=== PATIENT | female | born 1960 | race African-American/Black ===

== ENCOUNTER 2016-08-03 06:17 | Day surgery (SDC) | payer BC ==
[~2016-08-03] VITALS: Ht 167.6 cm; Wt 97.5 kg
[~2016-08-03 06:17] MED LIST: AMLO5TAB4 PO; BIOT1TAB7 PO; FISH; NEXIUM PO; SIMV10TA2 PO; WARF5TAB76 PO; [UNRECOGNIZED DRUG - REMARK] PO
[2016-08-03] MEDS ORDERED: LACTATED RINGERS 1,000 ML IV SCH (07:45)
[2016-08-03 08:09] LABS: INR 1.1; PARTIAL THROMBOPLASTIN TIME 40.4 sec (24.0-34.0); PROTHROMBIN TIME 11.3 sec
[2016-08-03] MEDS ORDERED: HYDR12.529 PO (08:32)
[2016-08-03] MEDS ORDERED: OMEP20CA10 PO (08:32)
[2016-08-03] MEDS ORDERED: SKIN ADHESIVE 0.7 GM EA TOP ONE (09:04)
[2016-08-03] MEDS ORDERED: LIDOCAINE HCL 1% 20ML VIAL (Pyxis) INJ ONE (09:04)
[2016-08-03] MEDS ORDERED: LIDOCAINE HCL/EPINEPHRINE 0.5%-EPI 1:200,000 50 ML VIAL INFIL ONE (09:05)
[2016-08-03] MEDS ORDERED: BUPIVACAINE HCL 0.5% (5MG/ML) 50ML ONE (09:05)
[2016-08-03] MEDS ORDERED: LEVOFLOXACIN 500MG PREMIX 100 ML IV ONE (09:56)
[2016-08-03] MEDS ORDERED: LABETALOL HCL 20MG/4ML CARPUJECT IV PRN (10:00)
[2016-08-03] MEDS ORDERED: MEPERIDINE HCL/PF 25MG/ML CPJ IV PRN (10:00)
[2016-08-03] MEDS ORDERED: ONDANSETRON HCL 4MG/2ML VIAL IV PRN (10:00)
[2016-08-03] MEDS ORDERED: HYDROMORPHONE HCL/PF 2MG/ML CPJ IV PRN (10:00)
[2016-08-03 11:14] VITALS: BP 120/79
[2016-08-03] MEDS ORDERED: HYDROCODONE/ACETAMINOPHEN 5/325MG TABLET PO PRN (11:15)
== END 2016-08-03 12:00 | disposition home or self-care (01) ==
LOC: OR 06:17
PROVIDERS: ATTEND Surgery
DX: D36.7 Benign neoplasm of other specified sites (principal); I10 Essential (primary) hypertension; E78.00 Pure hypercholesterolemia, unspecified; K21.9 Gastro-esophageal reflux disease without esophagitis; M19.90 Unspecified osteoarthritis, unspecified site
CPT/HCPCS: 27337; 36415; 85610; 85730; 88304; C1893; G0168; J1956; J3490; J7120

== ENCOUNTER 2016-11-05 08:21 | Emergency (ER) | payer BC ==
[~2016-11-05] VITALS: Ht 167.6 cm; Wt 95.0 kg
[~2016-11-05 08:21] MED LIST changes: +HYDR12.529 PO; +OMEP20CA10 PO
[2016-11-05] MEDS ORDERED: IBUPROFEN 800MG TABLET PO ONE (09:15)
[2016-11-05 09:27] VITALS: BP 143/86
== END 2016-11-05 09:55 | disposition home or self-care (01) ==
LOC: ER 08:21
DX: J02.9 Acute pharyngitis, unspecified (principal); I10 Essential (primary) hypertension; E78.00 Pure hypercholesterolemia, unspecified; Z86.73 Personal history of transient ischemic attack (TIA), and cerebral infarction without residual deficits; F17.200 Nicotine dependence, unspecified, uncomplicated; Z79.01 Long term (current) use of anticoagulants; Z88.0 Allergy status to penicillin; Z90.710 Acquired absence of both cervix and uterus; Z87.440 Personal history of urinary (tract) infections
CPT/HCPCS: 99283

== ENCOUNTER → 2016-12-02 | Outpatient (CLI) | payer BC ==
[2016-12-02 13:08] LABS: CLARITY URINE CLEAR (CLEAR); COLOR URINE YELLOW (YELLOW); GLUCOSE URINE NEGATIVE (NEGATIVE); KETONES URINE NEGATIVE (NEGATIVE); LEUKOCYTE ESTERASE URINE NEGATIVE (NEGATIVE); NITRITE URINE NEGATIVE (NEGATIVE); OCCULT BLOOD URINE TRACE (NEGATIVE); PH URINE 7.5 (4.5-8.0); PROTEIN URINE NEGATIVE (NEGATIVE); SPECIFIC GRAVITY URINE 1.016 (1.005-1.030)
[2016-12-02 13:09] LABS: BACTERIA URINE NONE SEEN; CALCIUM PHOSPHATE CRYSTALS UR NONE SEEN /lpf; SQUAMOUS EPITHELIAL CELL URINE 1+ /lpf (RARE/1+); WAXY CASTS URINE NONE SEEN /lpf; WBC URINE NONE SEEN /hpf (0-2); YEAST URINE NONE SEEN
[2016-12-02 13:14] LABS: BASOPHILS % 0.6 % (0.0-2.0); HEMATOCRIT. 38.7 % (36.0-48.0); LYMPHOCYTES % 53.3 % (20.0-50.0); MEAN CORPUSCULAR HEMOGLOBIN 29.9 pg (28.0-32.0); MEAN CORPUSCULAR HGB CONC 33.6 g/dL (31.0-37.0); MEAN CORPUSCULAR VOLUME 88.8 fL (81.0-99.0); MONOCYTES % 9.1 % (2.0-8.0); PLATELET 375 x1000/uL (130-400); RED BLOOD CELL COUNT 4.36 mill/uL (4.2-5.4); RED CELL DISTRIBUTION WIDTH 14.1 % (11.6-14.6); WHITE BLOOD COUNT 5.5 x1000/uL (4.5-11.0)
[2016-12-02 13:27] LABS: CHLORIDE 109 mEq/L (98-107); INDEX HEMOLYSI 1 (1-3); INDEX ICTERIC 1 (1-4); INDEX LIPEMIC 1 (1-3)
[2016-12-02 13:37] LABS: ALANINE AMINOTRANSFERASE 29 IU/L (13-61); ALBUMIN 3.4 g/dL (3.4-5.0); ANION GAP 9; CALCIUM 8.4 mg/dL (8.5-10.1); CARBON DIOXIDE 27 mEq/L (21-32); UREA NITROGEN BLOOD 11 mg/dL (7-21); eGFR > 60 mL/min (>60)
[2016-12-02 13:41] LABS: INR 1.2; PARTIAL THROMBOPLASTIN TIME 39.6 sec (24.0-34.0); PROTHROMBIN TIME 12.1 sec
== END | disposition home or self-care (01) ==
LOC: LAB 12:48
PROVIDERS: ATTEND Internal Medicine
DX: Z01.818 Encounter for other preprocedural examination (principal); Z13.0 Encounter for screening for diseases of the blood and blood-forming organs and certain disorders involving the immune mechanism; Z13.220 Encounter for screening for lipoid disorders
CPT/HCPCS: 36415; 80053; 81001; 85025; 85610; 85730

== ENCOUNTER → 2017-02-03 | Outpatient (CLI) | payer BC ==
[2017-02-03 10:51] LABS: INR 1.6; PARTIAL THROMBOPLASTIN TIME 49.3 sec (24.0-34.0); PROTHROMBIN TIME 16.7 sec
== END | disposition home or self-care (01) ==
LOC: LAB 10:08
PROVIDERS: ATTEND Internal Medicine
DX: I63.9 Cerebral infarction, unspecified (principal)
CPT/HCPCS: 36415; 85610; 85730

== ENCOUNTER → 2017-02-17 | Outpatient (CLI) | payer BC | END | disposition home or self-care (01) | LOC: MRI 14:43 | PROVIDERS: ATTEND Psychiatry & Neurology Neurology | DX: I63.312 Cerebral infarction due to thrombosis of left middle cerebral artery (principal); R90.82 White matter disease, unspecified | CPT/HCPCS: 70544; 70553 ==

== ENCOUNTER → 2017-04-14 | Outpatient (CLI) | payer BC ==
[2017-04-14 11:22] LABS: INR 1.9; PARTIAL THROMBOPLASTIN TIME 47.7 sec (23.4-31.0); PROTHROMBIN TIME 19.4 sec (9.4-11.6)
== END | disposition home or self-care (01) ==
LOC: LAB 10:50
PROVIDERS: ATTEND Internal Medicine
DX: I63.9 Cerebral infarction, unspecified (principal)
CPT/HCPCS: 36415; 85610; 85730

== ENCOUNTER → 2017-06-23 | Outpatient (CLI) | payer BC ==
[2017-06-23 10:47] LABS: INR 1.2; PARTIAL THROMBOPLASTIN TIME 41.5 sec (23.4-31.0); PROTHROMBIN TIME 12.8 sec (9.4-11.6)
== END | disposition home or self-care (01) ==
LOC: LAB 10:14
PROVIDERS: ATTEND Internal Medicine
DX: I63.9 Cerebral infarction, unspecified (principal)
CPT/HCPCS: 36415; 85610; 85730

== ENCOUNTER → 2017-07-05 | Outpatient (CLI) | payer BC | END | disposition home or self-care (01) | LOC: MAMMO 11:59 | PROVIDERS: ATTEND Internal Medicine | DX: Z12.31 Encounter for screening mammogram for malignant neoplasm of breast (principal) | CPT/HCPCS: G0202 ==

== ENCOUNTER → 2017-07-14 | Outpatient (CLI) | payer BC | END | disposition home or self-care (01) | LOC: MAMMO 10:29 | PROVIDERS: ATTEND Internal Medicine | DX: R92.2 Inconclusive mammogram (principal) | CPT/HCPCS: G0206 ==

== ENCOUNTER → 2017-07-28 | Outpatient (CLI) | payer BC ==
[2017-07-28 09:24] LABS: INR 1.9
== END | disposition home or self-care (01) ==
LOC: LAB 08:30
PROVIDERS: ATTEND Internal Medicine
DX: I63.50 Cerebral infarction due to unspecified occlusion or stenosis of unspecified cerebral artery (principal)
CPT/HCPCS: 36415; 85610